=== PATIENT | female | born 1955 | race Caucasian/White ===

== ENCOUNTER → 2017-06-20 | Outpatient (CLI) | payer BC | LOC: MC.RAD 14:21 | DX: Z01.89 Encounter for other specified special examinations (principal) ==

== ENCOUNTER → 2017-06-21 | Outpatient (CLI) | payer BC | LOC: MC.RAD 07:00 | DX: N63.22 Unspecified lump in the left breast, upper inner quadrant (principal); R59.0 Localized enlarged lymph nodes ==

== ENCOUNTER → 2017-06-28 | Outpatient (CLI) | payer BC | LOC: MC.RAD 07:19 | DX: N63.20 Unspecified lump in the left breast, unspecified quadrant (principal); R59.0 Localized enlarged lymph nodes ==

== ENCOUNTER 2017-07-13 06:26 | Day surgery (SDC) | payer BC ==
[~2017-07-13] VITALS: Ht 162.6 cm; Wt 87.5 kg
[2017-07-13] MEDS ORDERED: TOPROL XL 50MG50 MG PO (06:50)
[2017-07-13] MEDS ORDERED: AMILORIDE/HCTZ1 TAB PO (06:51)
[2017-07-13] MEDS ORDERED: PREDNISONE20 MG PO (06:51)
[2017-07-13] MEDS ORDERED: CLARITIN 1010 MG/TAB PO (06:52)
[2017-07-13 07:15] VITALS: BP 145/63; PULSE 62; TEMP 98.1
[2017-07-13 09:05] VITALS: BP 135/56; PULSE 57; TEMP 97.4
[2017-07-13 09:20] VITALS: BP 131/60; PULSE 54
[2017-07-13 09:35] VITALS: BP 139/61; PULSE 49
[2017-07-13 09:50] VITALS: BP 142/66; PULSE 52
[2017-07-13 10:08] VITALS: BP 139/57; PULSE 52
== END 2017-07-13 10:20 | disposition home or self-care (01) ==
LOC: SDCO 06:26
DX: C50.212 Malignant neoplasm of upper-inner quadrant of left female breast (principal); C77.3 Secondary and unspecified malignant neoplasm of axilla and upper limb lymph nodes; Z17.0 Estrogen receptor positive status [ER+]; I10 Essential (primary) hypertension; K21.9 Gastro-esophageal reflux disease without esophagitis; G47.30 Sleep apnea, unspecified; Z80.3 Family history of malignant neoplasm of breast; Z80.9 Family history of malignant neoplasm, unspecified
CPT/HCPCS: C1788; J0690; J2704; J3010; J7120

== ENCOUNTER → 2017-08-05 | Outpatient (CLI) | payer BC ==
[~2017-08-05] MED LIST: AMILORIDE/HCTZ1 TAB PO; CLARITIN 1010 MG/TAB PO; PREDNISONE20 MG PO; TOPROL XL 50MG50 MG PO
== END ==
LOC: COL.RAD 10:14
DX: H02.402 Unspecified ptosis of left eyelid (principal); R06.02 Shortness of breath
CPT/HCPCS: A9585

== ENCOUNTER → 2017-09-09 | Outpatient (CLI) | payer BC | LOC: MC.RAD 10:45 | DX: C50.212 Malignant neoplasm of upper-inner quadrant of left female breast (principal); R59.0 Localized enlarged lymph nodes ==

== ENCOUNTER 2018-04-12 09:38 | Outpatient (RCR) | payer BC ==
[~2018-04-12 09:38] MED LIST changes: +DETROL LA4 PO; +MESTINON 6060 MG/TAB PO
== END 2018-04-14 11:36 | disposition home or self-care (01) ==
LOC: MKS.ESL.PT 09:38
DX: I89.0 Lymphedema, not elsewhere classified (principal); Z85.3 Personal history of malignant neoplasm of breast; Z90.13 Acquired absence of bilateral breasts and nipples; Z92.3 Personal history of irradiation; I10 Essential (primary) hypertension

== ENCOUNTER → 2018-04-24 | Outpatient (CLI) | payer BC | LOC: COL.PUL 07:55 | DX: G70.00 Myasthenia gravis without (acute) exacerbation (principal) ==

== ENCOUNTER 2019-09-27 04:44 | Day surgery (SDC) | payer BC ==
[~2019-09-27] VITALS: Ht 162.6 cm; Wt 93.6 kg
[2019-09-27] VITALS (9 sets, daily range): BP systolic 120–150; BP diastolic 55–88; PULSE 60–82; TEMP 97.7–98.5
[2019-09-27] MEDS ORDERED: PRIL40 PO (06:18)
[2019-09-27] MEDS ORDERED: PREDNISONE10 MG PO (06:18)
[2019-09-27] MEDS ORDERED: ARIMIDEX1 MG PO (06:20)
[2019-09-27] MEDS ORDERED: KLOR-CON20 MEQ PO (06:22)
--- NOTE | 2019-09-27 09:15 | NUR ---
Patient returns to room 8 per cart from PACU and is awake and alert. IV fluids infusing and site is free of redness. Temp 97.4 and room air sats 97%. Mcneil set dressing x4 on incisional sites on abdomen clean and dry. Siderails up x2 and call light in reach. Allowed to rest.
[2019-09-27] MEDS ORDERED: ULTRAM 50MG TAB50 MG PO (09:27)
[2019-09-27] MEDS ORDERED: ZOFRAN 4MG T4 MG/TAB PO (09:27)
--- NOTE | 2019-09-27 09:30 | NUR ---
Continues to rest and denies any further pain or nausea.
--- NOTE | 2019-09-27 09:45 | NUR ---
Room air sats 93% and is resting with eyes closed.
--- NOTE | 2019-09-27 10:00 | NUR ---
Room air sats 93% and continues to rest without complaints of pain.
--- NOTE | 2019-09-27 10:30 | NUR ---
Eating crackers and sipping on water without nausea or increasing pain. Small ice bag on abdomen.
--- NOTE | 2019-09-27 11:00 | NUR ---
Has been resting and eating crackers and drinking water.
--- NOTE | 2019-09-27 12:00 | NUR ---
Patient is resting and denies pain or nausea.
--- NOTE | 2019-09-27 12:45 | NUR ---
Patient assisted up to the bathroom and is able to void and returns to room. IV to INT. Taking sips of water and Sprite. Denies need for pain medication or nausea.
--- NOTE | 2019-09-27 13:15 | NUR ---
IV discontinued and patient dresses self.
--- NOTE | 2019-09-27 13:25 | NUR ---
Patient dismissal instructions signed and provided scripts for Ultram and Zofran. Voices understanding of instructions.
--- NOTE | 2019-09-27 13:35 | NUR ---
Patient dismissed to home per private vehicle driven by friend and taken to the emergency room per wheelchair and assisted into truck with dismissal instructions in hand.
== END 2019-09-27 13:35 | disposition home or self-care (01) ==
LOC: SDCO 04:44
DX: K80.10 Calculus of gallbladder with chronic cholecystitis without obstruction (principal); I10 Essential (primary) hypertension; Z11.59 Encounter for screening for other viral diseases; Z85.3 Personal history of malignant neoplasm of breast; Z90.13 Acquired absence of bilateral breasts and nipples; Z88.8 Allergy status to other drugs, medicaments and biological substances; Z88.1 Allergy status to other antibiotic agents
CPT/HCPCS: J0690; J1100; J1170; J1885; J2405; J2550; J2704; J3010; J7120